=== PATIENT | male | born 1950 | race Caucasian/White ===

== ENCOUNTER → 2017-10-02 | Outpatient (CLI) | payer OTHER ==
[~2017-10-02] MED LIST: ASCA500 PO; CRDCD240 PO; HYDC25 PO; LISI-725 PO; LRT5 PO; METO25TA3 PO; MULT-506 PO; SIMV20TA2 PO
--- NOTE | 2017-10-03 06:29 | PAP/PSG TECHNICIAN REPORT ---
[facility] Metal Mixer Polysomnogram Report Study name: None Report date: 10/03/2017 Study date: 10/02/2017 Referring Physician: Dr. Velez Name: HECTOR JOY Interpreting Physician: Dano Bryson D.O. Date of : 1950 Metal Mixer: Heriberto White RPSGT. Sex: Male Age: 67 StudyType: PSG Weight: 173 lbs Height: 67 years, Height 5' 9" BMI: 25.54 Medications: LISINOPRIL 40 MG, TOPROL XL 50 MG, PREDNISONE 20 MG, SYMBICORT, HYDRODIURIL 25 MG, CARTIA XT 240 MG, ALBUTEROL SULFATE HFA 108 90 BASE Patient History PATIENT HAS HISTORY OF COPD, HYPERTENSION, FATIGUE, SNORING AND EXCESSIVE DAYTIME SLEEPINESS. HE IS HERE TODAY FOR AN EVALUATION FOR BOONE. ESS = 3 RM 6 Parameters Monitored NPSG: E1-M2, E2-M1, Fp1-M2, Fp2-M1, F3-M2, F4-M2, F4-M1, C3-M2, C4-M2, C4-M1, O1-M2, O2-M2, O2-M1, T3-M2, T4-M1, P3-M2, P4-M1, CHIN1, CHIN2, HR, EKG, Legs, PFLOW, SNOR, FLOW, CFLOW, Tidal Volume, THOR, ABDO, SpO2, PLTH, CPRESS, ETCO2 Wave, ETCO2, pH Sleep Architecture Sleep Stages Time at Lights Off 10:17:49 PM STAGES Time (min.) TST (%) Time at Lights On 5:40:19 AM Wake 141.5 -- Total Recording Time (TRT) 443.00 min. N1 8.5 3 Total Sleep Period (TSP) 382.0 min. N2 170.0 56 Total Sleep Time (TST) 301.0min. N3 44.5 15 Awake Time 141.5 min. REM 78.0 26 Wake after Sleep Onset 81.0 min. Sleep Efficiency (SE) 68 % Sleep Onset Latency (MIGUEL ÁNGEL) 60.5 min. Number of Stage 1 Shifts None Awakenings 10 Stage Changes 45 Number of REM periods 5 REM 78.0 26 REM Latency 47.0 min. NREM 223.0 74 Body Position Analysis Supine Right Left Side Prone Vertical Total Sleep Time (min.) 13.0 171.5 129.5 301.00 0.0 0.0 Total Sleep Time (%) 0% 57% 43% 100 0% N/A% Total Sleep Time REM (min.) 0.0 45.5 32.5 None 0.0 0.0 Total Sleep Time NREM (min.) 0.0 126.0 97.0 None 0.0 0.0 Intermittent Wake (min.) 13.0 51.3 77.3 None 0.0 0.0 Total Sleep Period (%) 0% None None None None None Arousals Myoclonus (PLM) * Events Count Index Events Count Index Spontaneous 14 3 Events Awake (PLMW) 157 66.6 Respiratory 5 1.0 Events Asleep w/ Arousal (PLMA) 4 0.8 PLM 4 1 Events Asleep w/o Arousal (PLMS) 230 45.8 Snoring 4 1 Total Asleep 234 46.6 Total 27 5 Total 391 53 Respiratory Analysis * CA OA MA CH H RERA Total Count 0 0 0 0 15 3 15 Index 0.0 0.0 0.0 0 3.0 1 3.6 Mean Duration 0.0 0.0 0.0 0.00 21.4 19.2 21.0 Longest Duration 0.0 0.0 0.0 0.00 0.0 22.9 29.3 Respiratory Event Summary Total Supine ~Supine Right Left Prone REM NREM Apneas Count 0 N/A 0 0 0 N/A 0 0 Index 0.0 N/A 0 0.0 0.0 N/A 0 0 Hypopneas (4% Desat) Count 15 N/A 15 2 13 N/A 1 14 Index 3.0 N/A 3 0.7 6.0 N/A 0.8 3.8 Apneas & All Hypopneas Count 15 N/A 15 2 13 N/A 1 14 Index 3.0 N/A 3 1 6 N/A 0.8 3.8 Respiratory Events (Retail Interior Designer+All Hyp+RERA) Count 15 N/A 18 3 15 N/A 1 14 Index 3.6 N/A 4 1.0 6.9 N/A 0.8 4.6 Respiratory Related Arousal Count 5 N/A 5 1 4 N/A 0 5 Index 1.0 N/A 1 0 2 N/A 0 1 Snoring Analysis Supine Right Left Prone REM NREM Total Snore duration 9.3 min Snores count N/A 347 80 N/A 126 301 427 Snore mean duration 1.3 Sec Snores index N/A 121 37 N/A 96.9 81.0 85.1 TST with snoring (%) 3.1% Desaturation Event Summary: Minimum %SpO2 Event Count Mean/Min/Max Duration(sec.) Desaturation Index % Time In Bed > 90 19 36.9 / 9.8 / 66.1 8.8 29.9 86 - 90 13 31.7 / 9.8 / 42.0 2.6 70.1 81 - 85 0 N/A 0.0 0.1 76 - 80 0 N/A 0.0 0.0 71 - 75 0 N/A 0.0 0.0 66 - 70 0 N/A 0.0 0.0 61 - 65 0 N/A 0.0 0.0 56 - 60 0 N/A 0.0 0.0 51 - 55 0 N/A 0.0 0.0 < 50 0 N/A 0.0 0.0 Total REM NREM Awake <50% 0.0 min. 0.0 min. 0.0 min. 0.0 min. 51 - 60% 0.0 min. 0.0 min. 0.0 min. 0.0 min. 61 - 70% 0.0 min. 0.0 min. 0.0 min. 0.0 min. 71 - 80% 0.0 min. 0.0 min. 0.0 min. 0.0 min. 81 - 90% 304.8 min. 31.8 min. 184.4 min. 88.6 min. 91 - 100% 129.8 min. 46.1 min. 38.6 min. 45.1 min. Average 90 91 89 90 Minimum SpO2 84 84 87 84 Desaturation Event Index 2.7 0.8 3.8 2.1 # Desat. Events below 89% 16 1 14 1 Time(%) with Saturation below 89% 16.7 0.6 15.0 1.1 Time(min.) with Saturation below 89% 72.7 2.5 65.4 4.8 Time (mins) REM (mins) NREM (mins) % of TST SpO2 Below 90% 15 1 N14 51.7 SpO2 Below 88% 9 0 0 1 Heart Rate Analysis Min (bpm) Max (bpm) Average (bpm) Awake 44 127 57 NREM 43 69 51 REM 44 69 58 Overall 43 69 53 Supplemental O2 Values Minimum O2 level: None Value Start Time End Time Metal Mixer Comments Mr. Joy slept in the right and left positions. Irregular EKG noted at times. Possible bundle branch. Leg movements noted. No bruxism noted. Snoring was noted and scored as a 4 on a scale of 1 through 5. (0=no snoring, 5=snoring loud enough to be heard through a closed door or down the [address]ard way) Mr. Joy awoke to use the restroom 1 time during the night. Mr. Joy stated I did not sleep as well as I do when I am in my own bed. The final report will be interpreted and signed by a sleep physician. The completed physician report will then be placed in the patient medical record. Therapy (cm H2O) 0 TIB (min.) 442.5 TST (min.) 301.0 Sleep Onset (min.) 60.5 REM Onset From Sleep (min.) 47.0 Sleep Efficiency % 68 Wakefulness (%) 32 Wakefulness (min.) 141.5 NREM 1 (%) 3 NREM 1 (min.) 8.5 NREM 2 (%) 56 NREM 2 (min.) 170.0 NREM 3 (%) 15 NREM 3 (min.) 44.5 REM (%) 26 REM (min.) 78.0 # Arousals 27 Arousal Index 5 # Snore 427 Snore Index 85.1 AHI 3.0 AHI Supine N/A AHI Non-Supine 3 NREM AHI 3.8 REM AHI 0.8 RDI 3.6 # Obstructive Apnea 0 # Central Apnea 0 # Mixed Apnea 0 # Hypopneas 15 RERAs 3 Total Respiratory Events 18 Time Below SpO2 89% (min.) 67.9 Mean NREM SpO2 (%) 89 Mean REM SpO2 (%) 91 Mean Sleep SpO2 (%) 90 Min NREM SpO2 (%) 87 Min REM SpO2 (%) 84 Position Supine (min.) 13.0 Position Non-supine (min.) 301.0 LM Index Sleep 46.6 LM Index NREM 36.3 LM Index REM 76.2 Mean Heart Rate (bpm) 53 Min Heart Rate (bpm) 43
--- NOTE | 2017-10-05 13:49 | Sleep Study ---
Sleep Study Report Date of Service: 10/02/2017 Sleep Study Report CLINICAL DATA: The patient is a 67-year-old male who was referred by Dr. Velez for an in-lab overnight polysomnography. He has a history of snoring, observed apneas, and fatigue. His Winchester score is 3. He has a history of hypertension and COPD. The patient's BMI is 25.54. SLEEP ARCHITECTURE: The total sleep period was 382 minutes. The total sleep time was 301 minutes. The sleep efficiency was moderately reduced to 68 percent. The sleep latency was prolonged to 60.5 minutes. Wake after sleep onset was prolonged to 81 minutes. The REM latency was 47 minutes. Sleep consisted of stage N1 3 percent, stage N2 56 percent, stage N3 15 percent , stage REM 26 percent. AROUSAL DATA: The patient had a total of 27 arousals including 14 spontaneous arousals, 5 respiratory arousals, 4 PLM arousals, and 4 snoring arousals. The arousal index is 5. PLM DATA: The patient had a total of 234 periodic limb movements for a PLM index of 46.6. There were only 4 arousals associated with limb movements for a PLM arousal index of 0.8. EKG: The cardiac rates ranged from 43 up to 69 beats per minute. The average heart rate was 53 beats per minute. It was very difficult to determine the underlying rhythm. At times it appeared like sinus rhythm. Other times P- waves were not as obvious. The rhythm was also quite irregular at times. It appeared he had a widened QRS complex. RESPIRATORY DATA: The patient had a total of 15 respiratory events, all hypopneas. Hypopneas were scored according to the 4 percent desaturation rule. The mean duration of the hypopneas was 21.4 seconds. The apnea-hypopnea index was 3.0. This would indicate no significant sleep apnea. OXIMETRY DATA: The average saturation for the night was 90 percent. The minimum saturation was 84 percent. There was a total of 9 minutes with saturations less than 88 percent. WATERPROOFER HELPER'S COMMENTS: The patient slept in the right and left positions. Irregular EKG noted at times. Leg movements noted. No bruxism noted. Snoring was noted and scored as a 4 on a scale of 1 through 5. The patient awakened to use the restroom 1 time during the night. IMPRESSION: 1. No evidence of significant obstructive sleep apnea 2. Periodic limb movement disorder 3. Cardiac arrhythmia 4. Nocturnal hypoxia COMMENTS: The patient had a decreased sleep efficiency. This was mainly related to difficulty initiating sleep but he also had difficulty maintaining sleep. He did not have any significant sleep apnea. He had moderate to severe number of limb movements but with few arousals. Clinical correlation is required to determine if he has symptoms of restless leg syndrome. He had some irregular heart rhythms intermittently during the nighttime. A definite rhythm type could not be determined. He also had lower than normal oxygenation. The patient is reported have a history of COPD which may contribute to this. RECOMMENDATIONS: 1. Clinical correlation is required to determine if he has symptoms of restless leg syndrome which might indicate a need for pharmacologic therapy. 2. It is suggested that a serum ferritin level be obtained in light of the limb movements. If the ferritin level is less than 50, supplementation with iron may be of benefit. 3. Follow-up on the cardiac arrhythmia and hypoxia is deferred to Dr. Velez, his referring physician. Copies To 1: Agustin Velez V.,Chen.; Dano Bryson,
== END | disposition home or self-care (01) ==
LOC: C.NEUR 20:00
PROVIDERS: ATTEND Internal Medicine
DX: G47.34 Idiopathic sleep related nonobstructive alveolar hypoventilation (principal); I49.9 Cardiac arrhythmia, unspecified; G47.61 Periodic limb movement disorder; I10 Essential (primary) hypertension; R06.83 Snoring; R53.82 Chronic fatigue, unspecified; J44.9 Chronic obstructive pulmonary disease, unspecified

== ENCOUNTER → 2018-05-26 | Day surgery (SDC) | payer OTHER ==
[~2018-05-26] VITALS: Ht 177.8 cm; Wt 78.5 kg
[~2018-05-26] MED LIST changes: +DEXTROSE 5% 1000ML 1,000 ML IV SCH; +NURSING VERBAL MED ORDER ONE
[2018-05-26 07:25] VITALS: Ht 177.8 cm; Wt 78.5 kg
[2018-05-26 07:26] VITALS: BP 176/93; PULSE 52; TEMP 36.7; O2SAT 94
--- NOTE | 2018-05-26 07:52 | History & Physical Bridge Note ---
H&P Re-Evaluation Bridge Note: I have examined the patient, reviewed the History & Physical and in the interval since the performance of the History & Physical I have noted the following changes of clinical significance: No changes noted
--- NOTE | 2018-05-26 07:53 | Pre Sedation Assessment ---
Pre Sedation Assessment General Date of Sedation: May 26, 2018. Vital Signs Past 12 Hours Date Time Temp Pulse Resp B/P (MAP) Pulse Ox O2 Delivery O2 Flow Rate FiO2 05/26/18 07:26 36.7 52 18 176/93 (120) 94 Room Air Pre-Sedation Airway Assessment Smoking Status: Former Smoker Hx of Sleep Apnea: No Short Thick Neck: No Thyro-mental Distance: > 3 Finger Breadths Oral Cavity: Dentures Mallampati Classification: Class II ASA Classification: Class II NPO Status Date of Last Intake of Fluids: May 26, 2018 Time of Last Intake of Fluids: 444 Date of Last Intake of Solids: May 25, 2018 Time of Last Intake of Solids: 2029 Procedure Planning Contraindications for Sedation: None Current Medications Reviewed: Yes Notes The planned sedation has been discussed with the patient. Informed Consent was obtained. I have identified the patient, determined the appropriateness of sedation and have assessed the patient immediately prior to the procedure. All medicine(s) and interventions are by my order.
--- NOTE | 2018-05-26 08:36 | [facility] Operative Report ---
Operative Report Operative Date May 26, 2018. Pre-Operative Diagnosis Bronchiectasis Post-Operative Diagnosis Bronchiectasis Procedure(s) Performed Bronchoscopy with Bronchial Alveolar Lavage Surgeon Dr. Lemons Terminal Worker Surgeon(s) None Estimated Blood Loss 0 Findings Chronic Mucopurulent Bronchitis Specimens Right and Left bronchial washings I attest to the content of the Intraoperative Record and any orders documented therein. Any exceptions are noted below.
--- NOTE | 2018-05-26 08:37 | Post Sedation Assessment ---
Post Sedation Assessment General Date of Sedation May 26, 2018. Vital Signs: Vital Signs Past 12 Hours Date Time Temp Pulse Resp B/P (MAP) Pulse Ox O2 Delivery O2 Flow Rate FiO2 05/26/18 08:30 53 16 168/79 93 Mask 4 05/26/18 08:25 61 16 182/89 98 Mask 4 05/26/18 08:20 59 14 216/95 99 Mask 4 05/26/18 08:10 56 14 210/97 99 Mask 4 05/26/18 07:26 36.7 52 18 176/93 (120) 94 Room Air Post Procedure Recovery Score Activity: (2) Moves 4 extremities * Respiration: (2) Deep breath/cough Circulation: (2) +/-20% PreAnes Value Consciousness: (1) Arouseable (by name) Oxygen Saturation: (1) O2 needed for >90% Post Anesthesia Score: 8 Discharge Sedation Level of Care: Fast Track Phase II Post Sedation Plan On clinical assessment, the patient appears to have tolerated the sedation without complications. Patient is recovering as anticipated. Patient will continue to be monitored by nursing and may be discharged when sedation discharge criteria are met per below protocol. Upon Completions of procedure and additional 15 minutes continue every 5 minute vital signs and the P.A.R. score; then discharge to a Phase I or Fast Track to Phase II per the following guidelines: * Discharge Patient to appropriate Phase II area if PAR is 8 or greater or return to pre- procedure baseline. The post - procedure orders will be as directed. * If PAR score is less than 8 or not return to pre-procedure baseline then patient will follow Phase I monitoring till PAR is reached for Phase II. The Phase I may be done in procedure room or may call to secure a Phase I area. * If naloxone or flumazenil are used for reversal, hold in Phase I for an additional 60 -120 minutes before discharge to Phase II. Please call the Sedation Physician to re-evaluate and complete post-note for discharge to Phase II area. Do NOT discharge from procedure sedation or Phase 1 until post- sedation evaluation note is complete by procedure /sedation MD Sedation Discharge Instructions to be given to the patient at discharge to home.
--- NOTE | 2018-05-26 08:43 | Discharge Instructions ---
Discharge Instructions Date of Service May 26, 2018. Admission Reason for Admission: COPD Discharge Discharge Diagnosis / Problem: Chronic Mucopurulent Bronchitis Discharge Goals Goal(s): Diagnostic testing Activity Recommendations Activity Limitations: resume your previous activity Lifting Limitations: none Exercise/Sports Limitations: none May Resume Sexual Activity: when tolerated Shower/Bathe: no limitations Driving or Machine Use: resume 1 day after discharge none . Current Hospital Diet Patient's current hospital diet: Discharge Diet Recommended Diet: Regular Diet Fluid Restriction: None Procedures Procedures Performed: Bronchoscopy with Bronchial Alveolar Lavage Pending Studies Studies pending at discharge: no Medical Emergencies . Who to Call and When: Medical Emergencies: If at any time you feel your situation is an emergency, please call 911 immediately. . Non-Emergent Contact Non-Emergency issues call your: Regional Property Manager Call Non-Emergent contact if: temperature is above 101 . . "Provider Documentation" section prepared by David Lemons. . Post Tensioning Ironworker Helper Recommendations Post Tensioning Ironworker Helper Recommendations: Chronic Mucopurulent Bronchitis
[2018-05-26 08:52] VITALS: BP 145/81; PULSE 92; TEMP 36.6; O2SAT 92
--- NOTE | 2018-05-26 09:13 | OPERATIVE REPORT ---
DATE OF OPERATION: 05/26/2018 PROCEDURE: Fiberoptic bronchoscopy with bronchoalveolar lavage. INDICATIONS: COPD exacerbation refractory to outpatient therapy. ANESTHESIA PREOPERATIVELY: None. ANESTHESIA DURING PROCEDURE: 2 mg IV Versed, 50 mcg IV fentanyl, 20 mL 2% Xylocaine spray above and below the cords, 4% viscous Xylocaine intranasally. DESCRIPTION OF PROCEDURE: Fiberoptic bronchoscope was inserted through right naris with minimal difficulty and passed to the level of the true vocal cords. The cords appeared to approximate normally with phonation without evidence of lesions or paralysis. The area was anesthetized with 2% Xylocaine spray and the scope was then introduced into the right and left tracheobronchial tree. The trachea was within normal limits. The adriel was sharp. The right main stem bronchus showed a copious amount of mucoviscous secretion that was lavaged from all lobar segments, especially the right mainstem bronchus. Right upper lobe, the apical posterior and anterior segments, bronchus intermedius, right middle lobe, medial lateral segments, and all basilar segments of right lower lobe were found to be free of endobronchial lesions with significant mucoid impaction. Each lobar and segmental bronchus was lavaged with normosol and the aspirate sent for appropriate studies. Mucus pitting with bronchial crypts and clefts were prominently displayed throughout the right tracheobronchial tree. Left tracheobronchial tree was then explored and similar findings were noted with copious mucoviscous secretion lavaged from each lobar segment. Same degree of mucus pitting with bronchial crypts and clefts was seen throughout the left tracheobronchial tree. No endobronchial lesions were seen. A mild degree of global inflammatory mucosal change was seen. After lavage, no brushings or biopsies were obtained or deemed necessary. Fluoroscopy was not utilized. The procedure was terminated. The patient tolerated the procedure well and was given a nebulizer treatment with Xopenex 1.25 mg and transferred to the same day surgery hemodynamically stable with no signs of respiratory compromise. Will await microbiological and cytologic examination of the bronchial washings. I attest to the content of the Intraoperative Record and any orders documented therein. Any exception s are noted below.
[2018-05-26 09:30] VITALS: BP 156/77; PULSE 46; O2SAT 94
[2018-05-26 10:32] VITALS: BP 186/91; PULSE 46; O2SAT 95
[2018-05-28 12:28] LABS: HERPES SIMPLEX VIRUS CULT ISOLATED (NOT ISOLATED)
== END | disposition home or self-care (01) ==
LOC: C.ACU 06:24
PROVIDERS: ATTEND Internal Medicine Pulmonary Disease
DX: J44.1 Chronic obstructive pulmonary disease with (acute) exacerbation (principal); I12.9 Hypertensive chronic kidney disease with stage 1 through stage 4 chronic kidney disease, or unspecified chronic kidney disease; N18.3 Chronic kidney disease, stage 3 (moderate); C61 Malignant neoplasm of prostate; E78.5 Hyperlipidemia, unspecified; Z87.891 Personal history of nicotine dependence; Z79.899 Other long term (current) drug therapy